=== PATIENT | male | born 1965 | race Caucasian/White ===

== ENCOUNTER 2017-03-31 16:22 | Emergency (ER) | payer SELFPAY ==
[~2017-03-31] VITALS: Ht 193 cm; Wt 105.9 kg
[2017-03-31 16:25] VITALS: BP 133/87; PULSE 85; RESP 15; TEMP 98.4; O2SAT 95
[2017-03-31] MEDS ORDERED: ATOR20TA15 PO ×2 (16:39→17:46)
[2017-03-31] MEDS ORDERED: PLAV75TA29 PO ×2 (16:39→17:46)
[2017-03-31 17:00] VITALS: RESP 16; O2SAT 97
[2017-03-31] MEDS ORDERED: CLOPIDOGREL 75 MG TAB PO ONE (17:00)
[2017-03-31] MEDS ORDERED: SODIUM CHLORIDE 0.9% FLUSH 10 ML FLUSH IVF PRN (17:00)
--- NOTE | 2017-03-31 17:04 | PD ---
HPI Chief Complaint: Medication Refill Request Time Seen by Provider: 16:36 Travel History International Travel<30 days: No Contact w/Intl Traveler<30days: No Traveled to known affect area: No History of Present Illness HPI The patient is a 52-year-old male who presents to the emergency department for medication refill. The patient states he has a recent history of coronary artery disease and underwent stent placement in the RCA and LAD, one month ago, and 2 months ago respectively, at [facility] in [place], [place]. The patient states he recently moved to [place], [place], does not have a primary physician or docketing specialist. The patient states he ran out of his atorvastatin and Plavix. He denies any acute chest pain or shortness of breath today, however, states earlier in the week he is unable to perform sexually and then had shortness of breath when climbing up several flights of stairs. He denies any acute chest pain or shortness of breath today. He denies any nausea, vomiting, diaphoresis, or exertional symptoms today. PFSH Past Medical History Coronary Artery Disease: Yes Immunizations Current: Yes Influenza Vaccination: No Past Surgical History Coronary Stent: Yes (X2) Social History Alcohol Use: No Tobacco Use: Yes (1 PPD) Substance Use: No Allergies-Medications (Allergen,Severity, Reaction): Coded Allergies: No Known Allergies (Unverified , 03/31/17) Reported Meds & Prescriptions Reported Meds & Active Scripts Active Reported Plavix (Clopidogrel Bisulfate) 75 Mg Tab 75 Mg PO DAILY Review of Systems Except as stated in HPI: all other systems reviewed are Neg HENT: No: Lightheadedness Cardiovascular: Positive: Dyspnea on exertion (earlier this week which has resolved), No: Chest Pain or Discomfort, Diaphoresis Respiratory: Positive: Shortness of Breath (earlier this week which has resolved) Gastrointestinal: No: Nausea, Vomiting Musculoskeletal: No: Weakness, Edema Neurologic: No: Dizziness Physical Exam Narrative GENERAL: Awake, alert, nontoxic-appearing 52-year-old male who appears his stated age and is in no acute respiratory distress. SKIN: Focused skin assessment warm/dry. HEAD: Atraumatic. Normocephalic. EYES: Pupils equal and round. Blue colored contact lenses noted. ENT: No nasal bleeding or discharge. Mucous membranes pink and moist. NECK: Trachea midline. No JVD. CARDIOVASCULAR: Regular rate and rhythm. No murmur appreciated. RESPIRATORY: No accessory muscle use. Clear to auscultation. Breath sounds equal bilaterally. GASTROINTESTINAL: Abdomen soft, non-tender, nondistended. No rebound tenderness. MUSCULOSKELETAL: No obvious deformities. No clubbing. No cyanosis. No edema. NEUROLOGICAL: Awake and alert. No obvious cranial nerve deficits. Motor grossly within normal limits. Normal speech. Nonfocal. PSYCHIATRIC: Appropriate mood and affect; insight and judgment normal. Data Data Last Documented VS Vital Signs Date Time Temp Pulse Resp B/P (MAP) Pulse Ox O2 Delivery O2 Flow Rate FiO2 03/31/17 17:05 80 16 102/65 (77) 97 Room Air 03/31/17 16:25 98.4 Orders Orders Electrocardiogram (03/31/17 16:53) Ckmb (Isoenzyme) Profile (03/31/17 16:53) Complete Blood Count With Diff (03/31/17 16:53) Comprehensive Metabolic Panel (03/31/17 16:53) Magnesium (Mg) (03/31/17 16:53) Prothrombin Time / Inr (Pt) (03/31/17 16:53) Act Partial Throm Time (Ptt) (03/31/17 16:53) Troponin I (03/31/17 16:53) Chest, Single Ap (03/31/17 16:53) Ecg Monitoring (03/31/17 16:53) Bilateral Bp Monitoring (03/31/17 16:53) Iv Access Insert/Monitor (03/31/17 16:53) Oximetry (03/31/17 16:53) Oxygen Administration (03/31/17 16:53) Sodium Chloride 0.9% Flush (Ns Flush) (03/31/17 17:00) Clopidogrel (Plavix) (03/31/17 17:00) CKMB (03/31/17 16:50) CKMB% (03/31/17 16:50) Labs Laboratory Tests Test 03/31/17 16:50 White Blood Count 11.9 TH/MM3 Red Blood Count 5.19 MIL/MM3 Hemoglobin 14.7 GM/DL Hematocrit 44.5 % Mean Corpuscular Volume 85.7 FL Mean Corpuscular Hemoglobin 28.4 PG Mean Corpuscular Hemoglobin Concent 33.1 % Red Cell Distribution Width 12.4 % Platelet Count 256 TH/MM3 Mean Platelet Volume 9.6 FL Neutrophils (%) (Auto) 77.0 % Lymphocytes (%) (Auto) 17.7 % Monocytes (%) (Auto) 3.4 % Eosinophils (%) (Auto) 1.4 % Basophils (%) (Auto) 0.5 % Neutrophils # (Auto) 9.1 TH/MM3 Lymphocytes # (Auto) 2.1 TH/MM3 Monocytes # (Auto) 0.4 TH/MM3 Eosinophils # (Auto) 0.2 TH/MM3 Basophils # (Auto) 0.1 TH/MM3 CBC Comment AUTO DIFF Prothrombin Time 10.5 SEC Prothromb Time International Ratio 1.0 RATIO Activated Partial Thromboplast Time 27.7 SEC Blood Urea Nitrogen 15 MG/DL Creatinine 1.20 MG/DL Random Glucose 112 MG/DL Total Protein 7.6 GM/DL Albumin 3.2 GM/DL Calcium Level 8.3 MG/DL Magnesium Level 2.1 MG/DL Alkaline Phosphatase 126 U/L Aspartate Amino Transf (AST/SGOT) 26 U/L Alanine Aminotransferase (ALT/SGPT) 38 U/L Total Bilirubin 0.2 MG/DL Sodium Level 138 MEQ/L Potassium Level 4.0 MEQ/L Chloride Level 106 MEQ/L Carbon Dioxide Level 23.2 MEQ/L Anion Gap 9 MEQ/L Estimat Glomerular Filtration Rate 64 ML/MIN Total Creatine Kinase 191 U/L Troponin I LESS THAN 0.02 NG/ML MDM Medical Decision Making Medical Screen Exam Complete: Yes Emergency Medical Condition: Yes Medical Record Reviewed: Yes Interpretation(s) EKG reveals normal sinus rhythm with a rate of 76. No ischemic changes or ectopy noted. Last Impressions Chest X-Ray 03/31/17 7131 Signed Impressions: Service Date/Time: Friday, March 31, 2017 17:05 - CONCLUSION: No acute cardiopulmonary disease. Cristian Negrete MD Laboratory Tests Test 03/31/17 16:50 White Blood Count 11.9 TH/MM3 Red Blood Count 5.19 MIL/MM3 Hemoglobin 14.7 GM/DL Hematocrit 44.5 % Mean Corpuscular Volume 85.7 FL Mean Corpuscular Hemoglobin 28.4 PG Mean Corpuscular Hemoglobin Concent 33.1 % Red Cell Distribution Width 12.4 % Platelet Count 256 TH/MM3 Mean Platelet Volume 9.6 FL Neutrophils (%) (Auto) 77.0 % Lymphocytes (%) (Auto) 17.7 % Monocytes (%) (Auto) 3.4 % Eosinophils (%) (Auto) 1.4 % Basophils (%) (Auto) 0.5 % Neutrophils # (Auto) 9.1 TH/MM3 Lymphocytes # (Auto) 2.1 TH/MM3 Monocytes # (Auto) 0.4 TH/MM3 Eosinophils # (Auto) 0.2 TH/MM3 Basophils # (Auto) 0.1 TH/MM3 CBC Comment AUTO DIFF Prothrombin Time 10.5 SEC Prothromb Time International Ratio 1.0 RATIO Activated Partial Thromboplast Time 27.7 SEC Blood Urea Nitrogen 15 MG/DL Creatinine 1.20 MG/DL Random Glucose 112 MG/DL Total Protein 7.6 GM/DL Albumin 3.2 GM/DL Calcium Level 8.3 MG/DL Magnesium Level 2.1 MG/DL Alkaline Phosphatase 126 U/L Aspartate Amino Transf (AST/SGOT) 26 U/L Alanine Aminotransferase (ALT/SGPT) 38 U/L Total Bilirubin 0.2 MG/DL Sodium Level 138 MEQ/L Potassium Level 4.0 MEQ/L Chloride Level 106 MEQ/L Carbon Dioxide Level 23.2 MEQ/L Anion Gap 9 MEQ/L Estimat Glomerular Filtration Rate 64 ML/MIN Total Creatine Kinase 191 U/L Troponin I LESS THAN 0.02 NG/ML Differential Diagnosis Differential diagnosis includes acute coronary syndrome, deconditioning, cardiomyopathy, congestive heart failure, pleural effusion, noncompliance, medication refill. Narrative Course IV was established, labs are drawn and sent, and the patient was placed on cardiac telemetry monitoring and continuous pulse oximetry monitoring. EKG was ordered and interpreted. Chest x-rays obtained. The patient was administered Plavix 75 mg orally. The patient is unsure if he has drug-eluting stents or bare-metal stents, does not have his stent card with him. The patient also cannot remember the name of his docketing specialist. The patient's chest x-rays unremarkable. EKG is unremarkable, no ischemic changes noted. Troponin is negative. The patient's currently asymptomatic. I will write for the patient' s Plavix and atorvastatin with refills, I have advised them to follow-up with a primary physician and/or docketing specialist. Diagnosis Primary Impression: Medication refill Additional Impressions: Coronary artery disease Qualified Codes: I25.10 - Atherosclerotic heart disease of [place] coronary artery without angina pectoris Hyperlipidemia Qualified Codes: E78.5 - Hyperlipidemia, unspecified Patient Instructions: General Instructions Additional Instructions: Medications as directed. Follow-up with your primary physician. Return if symptoms worsen or progress. Med/Other Pt SpecificInfo: Prescription(s) given Scripts Atorvastatin (Atorvastatin) 20 Mg Tab 20 MG PO DAILY for Cholesterol Management, #30 TAB 3 Refills Prov: Negrito Smith MD 03/31/17 Clopidogrel (Plavix) 75 Mg Tab 75 MG PO DAILY for Blood Clot Prevention, #30 TAB 3 Refills Prov: Negrito Smith MD 03/31/17 Disposition: 01 DISCHARGE HOME Condition: Stable Negrito Smith MD Mar 31, 2017 17:04
[2017-03-31 17:05] VITALS: BP 102/65; PULSE 80; RESP 16; O2SAT 97
[2017-03-31 17:15] LABS: AUTOMATED NEUTROPHIL # 9.1 TH/MM3 (1.8-7.7); BASOPHIL # 0.1 TH/MM3 (0-0.2); BASOPHIL % 0.5 % (0.0-2.0); EOSINOPHIL # 0.2 TH/MM3 (0-0.4); EOSINOPHIL % 1.4 % (0.0-4.0); HEMATOCRIT 44.5 % (39.0-51.0); LYMPH % 17.7 % (9.0-44.0); LYMPHOCYTE # 2.1 TH/MM3 (1.0-4.8); MEAN CELL VOLUME 85.7 FL (80.0-100.0); MEAN CORPUSCULAR HEMOGLOBIN 28.4 PG (27.0-34.0); MEAN CORPUSCULAR HGB CONC 33.1 % (32.0-36.0); MONO % 3.4 % (0.0-8.0); PLATELET COUNT 256 TH/MM3 (150-450); RED BLOOD COUNT 5.19 MIL/MM3 (4.50-5.90); RED CELL DISTRIBUTION WIDTH 12.4 % (11.6-17.2); WHITE BLOOD COUNT 11.9 TH/MM3 (4.0-11.0)
[2017-03-31 17:16] LABS: HEMO FLAGS AUTO DIFF
--- NOTE | 2017-03-31 17:21 | RADRPT ---
EXAM DATE/TIME: 03/31/2017 17:05 [facility] COMPARISON: No previous studies available for comparison. INDICATIONS : Chest pain. MEDICAL HISTORY : CAD, Previous left ankle fracture SURGICAL HISTORY : Coronary artery stent. ORIF left ankle, Bilateral meniscus repair ENCOUNTER: Initial ACUITY: 1 day PAIN SCORE: 1/10 LOCATION: Bilateral chest FINDINGS: The lungs are clear without infiltrate, nodule, or mass. There is no appreciable pleural effusion fo r technique. Heart and mediastinum are unremarkable. CONCLUSION: No acute cardiopulmonary disease. Cristian Negrete MD on March 31, 2017 at 17:19 Board Certified Radiologist. This report was verified electronically.
[2017-03-31 17:29] LABS: CHLORIDE 106 MEQ/L (98-107); SODIUM (NA) 138 MEQ/L (136-145)
[2017-03-31 17:33] LABS: ANION GAP 9 MEQ/L (5-15); BICARBONATE 23.2 MEQ/L (21.0-32.0); BLOOD UREA NITROGEN 15 MG/DL (7-18); MAGNESIUM 2.1 MG/DL (1.5-2.5)
[2017-03-31 17:34] LABS: APTT (PATIENT) 27.7 SEC (24.3-30.1); PROTHROMBIN TIME - PATIENT 10.5 SEC (9.8-11.6)
[2017-03-31 17:36] LABS: ALT (GPT) 38 U/L (12-78); AST (GOT) 26 U/L (15-37); GLOMERULAR FILTRATION RATE 64 ML/MIN (>89)
[2017-03-31 17:37] LABS: TOTAL BILIRUBIN ADULT 0.2 MG/DL (0.2-1.0)
[2017-03-31 17:39] LABS: ALKALINE PHOSPHATASE 126 U/L (45-117); CREATINE KINASE 191 U/L (39-308)
[2017-03-31 17:43] LABS: PLATELET ESTIMATE SMEAR NORMAL (NORMAL); PLATELET MORPHOLOGY NORMAL (NORMAL); SCAN/DIFF AUTO DIFF CONFIRMED
[2017-03-31 17:51] LABS: CKMB 1.4 NG/ML (0.5-3.6)
[2017-03-31 18:05] VITALS: BP 118/70
--- NOTE | 2017-04-01 13:46 | EKG ---
Date Performed: 03/31/2017 Time Performed: 16:58:45 PTAGE: 52 years EKG: Sinus rhythm NORMAL ECG NO PREVIOUS TRACING DOCTOR: Trent Ochoa Interpretating Date/Time 04/01/2017 13:45:33
== END 2017-03-31 18:10 | disposition home or self-care (01) ==
LOC: PHED 16:22
DX: I25.10 Atherosclerotic heart disease of native coronary artery without angina pectoris (principal); E78.5 Hyperlipidemia, unspecified; F17.200 Nicotine dependence, unspecified, uncomplicated
CPT/HCPCS: 71010; 80053; 82550; 82552; 83735; 84484; 85025; 85610; 85730; 93005